=== PATIENT | male | born 1950 | race Caucasian/White ===

== ENCOUNTER 2018-05-16 10:40 | Emergency (ER) | payer OTHER ==
[~2018-05-16] VITALS: Ht 175.3 cm; Wt 93.9 kg
[~2018-05-16 10:40] MED LIST: PROM25 PO; SIME80CH PO; TRAM50 PO; [UNRECOGNIZED DRUG - REMARK]
[2018-05-16] MEDS ORDERED: Norco 5-325 Ta1 EACH PO (11:45)
[2018-05-16] MEDS ORDERED: LOSA50 PO (11:45)
[2018-05-16] MEDS ORDERED: Prednisone50 MG PO (11:45)
[2018-05-16] MEDS ORDERED: CYCL10 PO (11:45)
== END 2018-05-16 12:11 | disposition home or self-care (01) ==
LOC: ER 10:40
DX: M54.41 Lumbago with sciatica, right side (principal); I10 Essential (primary) hypertension; F17.210 Nicotine dependence, cigarettes, uncomplicated
CPT/HCPCS: 99283

== ENCOUNTER 2018-07-28 15:21 | Emergency (ER) | payer OTHER ==
[~2018-07-28] VITALS: Ht 175.3 cm; Wt 98.4 kg
[~2018-07-28 15:21] MED LIST changes: +CYCL10 PO; +LOSA50 PO; +Norco 5-325 Ta1 EACH PO; +Prednisone20 MG PO; +Prednisone50 MG PO
[2018-07-28 15:57] LABS: BASOPHILS ABSOLUTE AUTO 0.07 K/mm3 (0.00-0.23); BASOPHILS PERCENT AUTO 1 % (0-2); EOSINOPHILS ABSOLUTE AUTO 0.43 K/mm3 (0.00-0.68); EOSINOPHILS PERCENT AUTO 6 % (0-6); Hematocrit 46.1 % (37.0-53.0); Hemoglobin 15.6 g/dL (13.5-17.5); IMMATURE GRAN ABSOLUTE AUTO 0.03 K/mm3 (0.00-0.10); IMMATURE GRAN PERCENT AUTO 0 % (0-1); LYMPHOCYTES ABSOLUTE AUTO 1.78 K/mm3 (0.84-5.20); LYMPHOCYTES PERCENT AUTO 25 % (21-46); MONOCYTES ABSOLUTE AUTO 0.69 K/mm3 (0.16-1.47); MONOCYTES PERCENT AUTO 10 % (4-13); Mean Corpuscular HGB 31.2 pg (26.0-34.0); Mean Corpuscular HGB Conc 33.8 g/dL (31.5-36.5); Mean Corpuscular Volume 92 fL (80-100); Mean Platelet Volume 9.3 fL (9.1-12.4); NEUTROPHILS ABSOLUTE AUTO 4.27 K/mm3 (1.96-9.15); NEUTROPHILS PERCENT AUTO 59 % (41-73); Platelet Count 314 K/mm3 (150-400); RDW Coefficient Variation 13.1 % (11.7-14.2); RDW Standard Deviation 44.4 fL (35.1-46.3); White Blood Cell Count 7.27 K/mm3 (4.00-11.30)
[2018-07-28 16:13] LABS: International Normalized Ratio 0.97; Prothrombin Time Results 10.3 Sec (9.7-11.5)
[2018-07-28] MEDS ORDERED: ASPI325 PO (16:25)
[2018-07-28] MEDS ORDERED: BP MED (16:25)
== END 2018-07-28 17:21 | disposition home or self-care (01) ==
LOC: ER 15:21
PROVIDERS: Physician Assistant
DX: T14.8XXA Other injury of unspecified body region, initial encounter (principal); I10 Essential (primary) hypertension; F17.200 Nicotine dependence, unspecified, uncomplicated; X58.XXXA Exposure to other specified factors, initial encounter
CPT/HCPCS: 36415; 85025; 85610; 85730; 99283

== ENCOUNTER → 2021-01-28 | Outpatient (CLI) | payer OTHER ==
[~2021-01-28] MED LIST changes: +ASPI325 PO; +BP MED
[2021-02-03 09:35] LABS: Stool Occult Bld Immuno 1 Negative (NEGATIVE)
== END | disposition home or self-care (01) ==
LOC: LAB SHORT 06:00
PROVIDERS: Family Medicine
DX: Z12.11 Encounter for screening for malignant neoplasm of colon (principal)
CPT/HCPCS: G0328

== ENCOUNTER 2024-08-07 10:59 | Day surgery (SDC) | payer OTHER ==
[~2024-08-07] VITALS: Ht 170.2 cm; Wt 95.8 kg
[~2024-08-07 10:59] MED LIST changes: +Balanced Salt Epinephrine Irrigation Solution 500 mL IR SCH; +Lidocaine HCl/Pf 1% 5 ML VIAL XX SCH; +Moxifloxacin HCL 0.5 MG/0.1 ML 0.4MLSYR RIGHTEYE SCH; +PHENYLEPHRINE\\TROPICAMIDE\\TETRACAINE OPHTHALMIC DILATING SOLN RIGHTEYE PRN; +Povidone-Iodine 450 DROP/30 ML Solution ONE; +Povidone-Iodine 450 DROP/30 ML Solution RIGHTEYE SCH; +Tetracaine HCl/Pf 0.5% Opth Soln 4 ml ONE; +Triamcinolone Inj Susp 40 MG / ML 1ML Vial INJ SCH; +Triamcinolone Inj Susp 40 MG / ML 1ML Vial ONE
[2024-08-07] MEDS ORDERED: Diazepam 2 MG Tab ONE (11:29)
[2024-08-07] MEDS ORDERED: Flomax0.4 MG PO (11:33)
[2024-08-07] MEDS ORDERED: OLMESARTAN-HCT1 EAC3 (11:34)
[2024-08-07] MEDS ORDERED: OMEP20ER PO (11:34)
[2024-08-07] MEDS ORDERED: AMLO10 PO (11:34)
--- NOTE | 2024-08-07 11:42 | NUR ---
08/07/24 1142 TUSHAR MALDONADO: [id number] DAVIDE: [id number]
[2024-08-07] MEDS ORDERED: Ondansetron HCl 2 MG / ML 2ML Vial ONE (11:54)
[2024-08-07] MEDS ORDERED: Tetracaine HCl 0.5% Opth Soln 15 ml RIGHTEYE ONE (12:00)
[2024-08-07 12:29] VITALS: BP 133/94
--- NOTE | 2024-08-07 12:43 | NUR ---
08/07/24 1243 Ravi Gonzales MD AWARE BP 153/117 AND 133/94, PT STATES HE DID NOT TAKE HIS BLOOD PRESSURE MEDICATION THIS AM, AND PT AGREED TO TAKE HIS BLOOD PRESSURE MEDICATIONS WHEN HE GETS HOME.
== END 2024-08-07 12:55 | disposition home or self-care (01) ==
LOC: ORSCSDS 10:59
PROVIDERS: Ophthalmology
PROC: 08RJ3JZ Replacement of Right Lens with Synthetic Substitute, Percutaneous Approach (ICD-10-PCS; principal; 2024-08-07 12:30)
DX: H25.813 Combined forms of age-related cataract, bilateral (principal); I10 Essential (primary) hypertension; K21.9 Gastro-esophageal reflux disease without esophagitis; F17.210 Nicotine dependence, cigarettes, uncomplicated; E66.9 Obesity, unspecified; Z68.33 Body mass index [BMI] 33.0-33.9, adult; Z79.82 Long term (current) use of aspirin; Z79.899 Other long term (current) drug therapy
CPT/HCPCS: A9270; J2405; J3301; V2632

== ENCOUNTER 2024-08-15 11:01 | Day surgery (SDC) | payer OTHER ==
[~2024-08-15] VITALS: Ht 175.3 cm; Wt 96.1 kg
[~2024-08-15 11:01] MED LIST changes: +AMLO10 PO; +Flomax0.4 MG PO; +Moxifloxacin HCL 0.5 MG/0.1 ML 0.4MLSYR LEFTEYE SCH; -Moxifloxacin HCL 0.5 MG/0.1 ML 0.4MLSYR RIGHTEYE SCH; +OLMESARTAN-HCT1 EAC3; +OMEP20ER PO; +PHENYLEPHRINE\\TROPICAMIDE\\TETRACAINE OPHTHALMIC DILATING SOLN LEFTEYE PRN; -PHENYLEPHRINE\\TROPICAMIDE\\TETRACAINE OPHTHALMIC DILATING SOLN RIGHTEYE PRN; +Povidone-Iodine 450 DROP/30 ML Solution LEFTEYE SCH; -Povidone-Iodine 450 DROP/30 ML Solution RIGHTEYE SCH
[2024-08-15] MEDS ORDERED: Diazepam 2 MG Tab ONE (11:12)
[2024-08-15] MEDS ORDERED: Diazepam 5 MG Tab ONE (11:13)
[2024-08-15] MEDS ORDERED: Ondansetron HCl 2 MG / ML 2ML Vial ONE (11:57)
[2024-08-15 12:27] VITALS: BP 133/91
== END 2024-08-15 12:36 | disposition home or self-care (01) ==
LOC: ORSCSDS 11:01
PROVIDERS: Ophthalmology
PROC: 08RK3JZ Replacement of Left Lens with Synthetic Substitute, Percutaneous Approach (ICD-10-PCS; principal; 2024-08-15 12:30)
DX: H25.812 Combined forms of age-related cataract, left eye (principal); I10 Essential (primary) hypertension; K21.9 Gastro-esophageal reflux disease without esophagitis; F17.210 Nicotine dependence, cigarettes, uncomplicated; Z79.82 Long term (current) use of aspirin; Z79.899 Other long term (current) drug therapy
CPT/HCPCS: A9270; J2405; J3301; V2632